=== PATIENT | female | born 1995 | race Two or more races ===

== ENCOUNTER 2019-03-28 02:36 | Emergency (ER) | payer SELFPAY ==
[2019-03-28 03:00] VITALS: BP 112/79
[2019-03-28] MEDS ORDERED: Diphtheria,Pertussis(Acell),Tetanus Vaccine 0.5 ML SDV IM ONE (03:38)
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
[2019-03-28] MEDS ORDERED: Acetaminophen/oxyCODONE 325-5 MG Tab PO ONE (05:45)
[2019-03-28] MEDS ORDERED: Amoxicillin/Clavulanate K 875-125 MG Tab PO ONE (05:53)
== END 2019-03-28 06:06 | disposition home or self-care (01) ==
LOC: JP.ED 02:36
DX: S41.151A Open bite of right upper arm, initial encounter (principal); S10.93XA Contusion of unspecified part of neck, initial encounter; S00.83XA Contusion of other part of head, initial encounter; Z23 Encounter for immunization; Y04.1XXA Assault by human bite, initial encounter
CPT/HCPCS: 70450; 70486; 72125; 81025; 90471; 90715; 99284; A9270

== ENCOUNTER 2025-09-21 14:34 | Emergency (ER) | payer SELFPAY ==
[2025-09-21 15:27] VITALS: BP 109/63; PULSE 77
== END 2025-09-21 16:10 | disposition home or self-care (01) ==
LOC: JP.ED 14:34
DX: K06.1 Gingival enlargement (principal)
CPT/HCPCS: 99282; 99283